=== PATIENT | female | born 1995 ===

== ENCOUNTER 2022-10-30 20:59 | Emergency (ER) | payer OTHER ==
[~2022-10-30] VITALS: Ht 152.4 cm; Wt 52.2 kg
[~2022-10-30 20:59] MED LIST: PRENATAL TABLE1 EAC1 PO
[2022-10-31] MEDS ORDERED: MIRALAX510 GM PO (06:30)
== END 2022-10-31 06:40 ==
LOC: ER 20:59
DX: K59.00 Constipation, unspecified (principal); Z88.8 Allergy status to other drugs, medicaments and biological substances